=== PATIENT | female | born 1935 | race Caucasian/White ===

== ENCOUNTER 2018-01-19 11:22 | Observation (INO) ==
--- NOTE | 2018-01-19 11:49 | Emergency Department Note ---
Disposition Clinical Impression: Anterior dislocation of left shoulder Disposition: Admitted As Inpatient Condition: Good General Adult HPI - General Chief complaint: ED Extremity Problem,Nontraumatic Stated complaint: SHOULDER PAIN Time Seen by Provider: 01/19/18 11:25 Source: EMS Limitations: altered mental status Nursing Notes Reviewed: Yes Vital Signs Reviewed: Yes - History of Present Illness HPI Narrative: Left shoulder pain. Nursing staff noticed this morning. No trauma. Patient is nonverbal. Pain Scale: 5 - Related Data Home Medications Medication Instructions Recorded Confirmed Acetaminophen [Tylenol 650mg SUPP] 650 mg RC Q4HR PRN 01/19/18 01/19/18 HYDROcodone/Acet 7.5/325 mg [[place] 1 tab PO DAILY PRN 01/19/18 01/19/18 7.5-325 mg] LORazepam [Lorazepam Intensol] 0.25 ml SL BID PRN 01/19/18 01/19/18 MORPHINE SUL Oral CONC [Roxanol 0.25 mg SL Q4H PRN 01/19/18 01/19/18 Oral Conc] Na Phos,M-B/Na Phos,Di-Ba [Fleet 230 ml RC DAILY PRN 01/19/18 01/19/18 Enema Extra] Allergies Allergy/AdvReac Type Severity Reaction Status Date / Time No Known Allergies Allergy Verified 01/19/18 16:33 Limitations: ROS unobtainable due to patients medical condition (Patient is nonverbal) Past Medical History - Past Medical History Medical history: Reports: arthritis, CHF, dementia, GERD, hypertension Psychiatric history: Reports: depression - Social History Smoking Status: Never smoker Alcohol use: Reports: none Drug use: Reports: none Physical Exam - General Limitations: altered mental status General appearance: alert Course Course Narrative: Nonverbal female patient from the skilled nursing with a concern for left shoulder dislocation. This most of happen sometime overnight. The daughter is at bedside stating that there was no trauma associated. They did have to use a Alyssa lift to try to move around and they are afraid this is what happened. She has no pain on range of motion of her right however she does not allow me to move it throughout the full range of motion. She has good radial pulses bilaterally. On the left if you attempt to abduct her shoulder she winces in pain and says out. I do not appreciate any signs of trauma to her body. - Reevaluation(s) Reevaluation #1: We used ketamine and Versed to help with the reduction. All the shoulder did remove I do not believe this back in place. We will get a postreduction film and contact orthopedics. We did try multiple techniques such as scapular manipulation as well as traction and anterior-posterior movement. We did attempt to manipulate the humeral head with no success. Time: 15:29 Vital Signs Temperature 99.3 F 01/19/18 11:25 Pulse Rate 89 01/19/18 11:25 Respiratory Rate 18 01/19/18 11:25 Blood Pressure 193/71 01/19/18 11:25 O2 Sat by Pulse Oximetry 94 01/19/18 11:25 Temperature 98.9 F 01/19/18 19:48 Pulse Rate 77 01/19/18 19:48 Respiratory Rate 14 01/19/18 19:48 Blood Pressure 169/85 01/19/18 19:48 O2 Sat by Pulse Oximetry 95 01/19/18 19:48 Oxygen Delivery Oxygen Delivery [1525] Nasal Cannula Oxygen Delivery [1520] Nasal Cannula Oxygen Delivery [1515] Nasal Cannula Oxygen Delivery [1510] Nasal Cannula Oxygen Delivery [1505] Room Air Oxygen Delivery Nasal Cannula
[2018-01-19] MEDS ORDERED: *HR* Ketamine 500 MG/5 ML MDV IVP ONE (13:17)
[2018-01-19] MEDS ORDERED: *HR* Midazolam HCl 2 MG/2 ML VIAL IVP ONE ×2 (13:18→15:50)
[2018-01-19] MEDS ORDERED: 0.9 % Sodium Chloride 1,000 ML ONE (14:56)
--- NOTE | 2018-01-19 15:37 | Emergency Department Note ---
Disposition Clinical Impression: Anterior dislocation of left shoulder Qualifiers: Encounter type: initial encounter Qualified Code(s): S43.015A - Anterior dislocation of left humerus, initial encounter Disposition: Admitted As Inpatient Condition: Good Extremity Problem HPI - General Chief complaint: ED Extremity Problem,Nontraumatic Stated complaint: SHOULDER PAIN Time Seen by Provider: 01/19/18 11:25 Source: EMS Limitations: altered mental status Nursing Notes Reviewed: Yes Vital Signs Reviewed: Yes - History of Present Illness HPI Narrative: 82-year-old female with a history of advanced dementia presents due to left shoulder pain. Patient is nonverbal but nursing staff noted that she was not using or moving her left arm. According to staff she was normal yesterday. X- rays were done revealing anterior dislocation of the left glenohumeral joint. Pt Subjective Complaint: extremity pain Onset (ago): unknown Consistency: constant Injury Location: left Pain Scale: 5 Improves with: nothing Worsens with: range of motion - Related Data Home Medications Medication Instructions Recorded Confirmed Acetaminophen [Tylenol 650mg SUPP] 650 mg RC Q4HR PRN 01/19/18 01/19/18 HYDROcodone/Acet 7.5/325 mg [[place] 1 tab PO DAILY PRN 01/19/18 01/19/18 7.5-325 mg] LORazepam [Lorazepam Intensol] 0.25 ml SL BID PRN 01/19/18 01/19/18 MORPHINE SUL Oral CONC [Roxanol 0.25 mg SL Q4H PRN 01/19/18 01/19/18 Oral Conc] Na Phos,M-B/Na Phos,Di-Ba [Fleet 230 ml RC DAILY PRN 01/19/18 01/19/18 Enema Extra] Allergies Allergy/AdvReac Type Severity Reaction Status Date / Time No Known Allergies Allergy Verified 01/19/18 16:33 Limitations: ROS unobtainable due to patients medical condition Past Medical History - Past Medical History Medical history: Reports: arthritis, CHF, dementia, GERD, hypertension Psychiatric history: Reports: depression - Social History Smoking Status: Never smoker Alcohol use: Reports: none Drug use: Reports: none Physical Exam Pleasantly confused elderly female in no apparent physiologic distress. She does follow some commands but is unable to follow in detail. Oropharynx is clear mucous membranes are dry. Mallampati airway score of 2-3. Trachea is midline. Chest is clear to auscultation bilaterally. Both shoulders are tender to palpation. There is clearly an empty glenoid on the left shoulder. There appears to be some deformity of the right shoulder as well and she seems to wince with palpation. Lower extremities unremarkable. - General Limitations: altered mental status General appearance: alert - Head Head exam: atraumatic - Eye Eye exam: Present: normal appearance - ENT ENT exam: normal exam, normal oropharynx, other - Neck Neck exam: Present: normal inspection Course - Reevaluation(s) Reevaluation #1: Patient has a anterior-inferior dislocation of the left proximal humerus. It is uncertain as to how long this has been dislocated. Patient is nonverbal and unable to contribute anything verbally. She had eaten breakfast between 9:00 this morning so without 6 hours to pass before any sedation. She is Mallampati airway class II with congestive heart failure. ASA class III. She was given initially 1 mg of IV Versed and we titrated ketamine up to 70 mg while under continuous cardiac monitoring, oximetry and capnography. She maintain entitle CO2 of 20-22 with OXYGENATION WHILE ON 3 L OF NASAL CANNULA OXYGEN. She appeared to be adequately sedated with transient drop in oxygenation, but did exhibit some discomfort and moaning with traction on the shoulder. Multiple attempts to reduce shoulder under linear traction were unsuccessful with this degree of sedation. Follow-up x-ray reveals there to be no significant change in positioning of the glenohumeral joint. Given her advanced age, comorbidities and the difficult nature to reduce the shoulder we decided to terminate further efforts in the ED and will contact orthopedics. She may need to have this done under general anesthesia in a more controlled setting. Time: 15:37 Reevaluation #2: Brief discussion with Dr. Victor; call interrupted and he said he will call back Time: 16:16 Vital Signs Temperature 99.3 F 01/19/18 11:25 Pulse Rate 89 01/19/18 11:25 Respiratory Rate 18 01/19/18 11:25 Blood Pressure 193/71 01/19/18 11:25 O2 Sat by Pulse Oximetry 94 01/19/18 11:25 Temperature 98.9 F 01/19/18 19:48 Pulse Rate 77 01/19/18 19:48 Respiratory Rate 14 01/19/18 19:48 Blood Pressure 169/85 01/19/18 19:48 O2 Sat by Pulse Oximetry 95 01/19/18 19:48 Oxygen Delivery Oxygen Delivery [1525] Nasal Cannula Oxygen Delivery [1520] Nasal Cannula Oxygen Delivery [1515] Nasal Cannula Oxygen Delivery [1510] Nasal Cannula Oxygen Delivery [1505] Room Air Oxygen Delivery Nasal Cannula Attestation Statement - Attestation Attestation: I examined this patient and my medical decision-making was reviewed with the Resident Physician. I agree with the documented findings, disposition and treatment plan as described except to the extent set forth below.
--- NOTE | 2018-01-19 16:54 | Anesthesia Evaluation PreOp ---
Date of Encounter: 01/19/18 Time of Encounter: 16:51 - Past History Planned Operation: Closed vs. 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 Anxiety/Depression) Other Medical History: Other (Psoriatic Arthritis) Anesthesia History: Past Anesthesia ( x 2, Hyster, Hemorrhoidectomy, B- TKR) Alcohol Use: none Drug use: none Medications and Allergies Acetaminophen [Tylenol 650mg SUPP] 650 mg RC Q4HR PRN 01/19/18 [History] HYDROcodone/Acet 7.5/325 mg [[place] 7.5-325 mg] 1 tab PO DAILY PRN 01/19/18 [ History] LORazepam [Lorazepam Intensol] 0.25 ml SL BID PRN 01/19/18 [History] MORPHINE SUL Oral CONC [Roxanol Oral Conc] 0.25 mg SL Q4H PRN 01/19/18 [History] Na Phos,M-B/Na Phos,Di-Ba [Fleet Enema Extra] 230 ml RC DAILY PRN 01/19/18 [ History] 3 Allergy/AdvReac Type Severity Reaction Status Date / Time No Known Allergies Allergy Verified 01/19/18 16:33 - Meds/Allergy Pre-op Review Medications Reviewed: Yes Allergies Reviewed: Yes Beta Blockers on Current Med List: No Anesthesia Results - Labs Impressions Shoulder X-Ray 01/19/18 15:28 IMPRESSION: Unchanged impacted anterior-inferior glenohumeral dislocation with suspected Hill-Sachs fracture. D/ / Tam Dodd / Tam Dodd Interpreting Provider: Tam Dodd Anesthesia Exam Vital Signs Temp Pulse Pulse Pulse Pulse Pulse Pulse 01/19/18 16:15 79 01/19/18 15:45 78 01/19/18 15:40 76 01/19/18 15:35 76 01/19/18 15:01 82 82 85 84 78 01/19/18 11:25 99.3 F 89 Resp Resp Resp Resp Resp Resp BP 01/19/18 16:15 17 198/90 01/19/18 15:45 18 194/100 01/19/18 15:40 19 194/93 01/19/18 15:35 18 194/92 01/19/18 15:01 20 17 15 24 19 01/19/18 11:25 18 193/71 BP BP BP BP Pulse Ox 01/19/18 16:15 99 01/19/18 15:45 99 01/19/18 15:40 99 01/19/18 15:35 99 01/19/18 15:01 195/89 200/103 197/97 192/89 01/19/18 11:25 94 Intake and Output 01/19/18 01/19/18 01/19/18 07:59 15:59 23:59 Other: Weight 69.853 kg Patient Weight 01/19/18 23:59 Weight 69.853 kg Height: 5'3" Weight: 154# BMI = 27.3 NPO (# of Hours): MNoc Pain Scale Used: Unable to assess - HEENT Pupil (Motor): Pupils equal, EOMI Mallampati: II Teeth: Edentulous Oral Opening: Greater than 3 - WIRE PREPARATION WORKER LOC: Uncooperative WIRE PREPARATION WORKER Motor: Normal RUE, Normal RLE, Normal LLE, Normal Face, Deficit LUE WIRE PREPARATION WORKER Sensory: Normal: RUE, RLE, LLE, Face, Deficit: LUE - Cardiac Rhythm: Regular Murmur: None - Pulmonary Breath Sounds: bilateral Clear Respiratory Effort: Symmetrical Anesthesia Assess/Plan ASA Score: 3 (CHF, HTN, Dementia, Anxiety/Depression) Modified [place] Scale for Level of Consciousness: Cooperative, oriented, and tranquil Anesthetic Plan: General Monitoring Plan: Standard Monitors Recovery Plan: PACU Anes Supervising Prov Stmt: Pt seen/evaluated but not communicating with staff/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 R&B Discussed, questions answered and consent obtained. Afia Day MD
--- NOTE | 2018-01-19 17:15 | Orthopedic Consult Note ---
Date of Encounter: 01/19/18 Time of Encounter: 17:12 Assessment and Plan (1) Anterior dislocation of left shoulder Current Visit: Yes Status: Acute The diagnosis and treatment plan were discussed with the patient's family. She has an anterior shoulder dislocation causing her pain. The family does believe it has been out since last night but there was no witnessed injury. The physicians in the ED were unable to reduce the shoulder due to O2 desaturation with conscious sedation. Due to obvious pain it is causing and failure of attempted closed reduction in the ED, we will perform closed vs open reduction of the left shoulder in the operating room. The risks and benefits of the procedure were fully explained in detail, including but not limited to the risk of infection, neurovascular injury, continued pain or stiffness, fracture, redislocation, failure of surgery, reinjury, or need for additional surgery, DVT , PE, general risks of anesthesia and loss of limb or life. No guarantees were given or implied and all questions were answered. The patient's daughter, who is POA, understands all the risks and does wish to proceed with written consent. Qualifiers: Encounter type: initial encounter Qualified Code(s): S43.015A - Anterior dislocation of left humerus, initial encounter History of Present Illness HPI: Ms. Heredia is a 82 year old female with PMHx arthritis, CHF, dementia, GERD, hypertension who presents with a left shoulder dislocation. She is nonverbal and her history comes from her daughter. She resides at a senior living. Per the daughter and senior living staff she was using her left arm normally yesterday and then today they noticed an obvious deformity of the shoulder and she has not moved it. She has pain when the staff attempted to passively range the shoulder. There was no witnessed trauma but she did have to be moved via a jihan lift and then are concerned that is when the injury happened. Past Med Surg Social Fam HX - Past Medical History Medical history: arthritis, CHF, dementia, GERD, hypertension Additional medical history: UTIs. anemia. diverticulosis Psychiatric history: depression - Social History Smoking Status: Never smoker Alcohol use: none Drug use: none Medications and Allergies Acetaminophen [Tylenol 650mg SUPP] 650 mg RC Q4HR PRN 01/19/18 [History] HYDROcodone/Acet 7.5/325 mg [[place] 7.5-325 mg] 1 tab PO DAILY PRN 01/19/18 [ History] LORazepam [Lorazepam Intensol] 0.25 ml SL BID PRN 01/19/18 [History] MORPHINE SUL Oral CONC [Roxanol Oral Conc] 0.25 mg SL Q4H PRN 01/19/18 [History] Na Phos,M-B/Na Phos,Di-Ba [Fleet Enema Extra] 230 ml RC DAILY PRN 01/19/18 [ History] 3 Allergy/AdvReac Type Severity Reaction Status Date / Time No Known Allergies Allergy Verified 01/19/18 16:33 ROS unobtainable: due to mental status All Systems Reviewed: The remainder of the systems were reviewed and are negative Physical Exam - Constitutional Vitals: Temp Pulse Resp BP Pulse Ox 99.3 F 79 17 198/90 99 01/19/18 11:25 01/19/18 16:15 01/19/18 16:15 01/19/18 16:15 01/19/18 16:15 Exam: Consult Exam: Constitutional -Vitals reviewed -The patient is well developed and well nourished. Psychiatric -The patient is alert and oriented x 0. Respiratory: -Respiratory effort normal Abdomen: -Soft abdomen -Non tender -Non distended: Left upper extremity: -Obvious glenoid defect. The overlying skin is intact. -Pain with attempted passive motion of the shoulder -No significant pain with passive motion of the elbow, wrist, and fingers within the limits of the bed. -Actively moving hand and wrist -Radial pulse is present; Fingers have good capillary refill. Right upper extremity: -No deformities. The overlying skin is intact. No obvious signs of acute trauma. -No significant pain with passive motion of the shoulder, elbow, wrist, and fingers within the limits of the bed. -Actively moving extremity without apparent difficulty -Radial pulse is present; Fingers have good capillary refill. Left lower extremity: -No deformities. The overlying skin is intact. No obvious signs of acute trauma. -No tenderness to palpation throughout. -No pain with passive motion of the hip, knee, ankle, and toes within the limits of the bed. -Spontaneously moving extremity -Toes have good capillary refill. Right lower extremity: -No deformities. The overlying skin is intact. No obvious signs of acute trauma. -No tenderness to palpation throughout. -No pain with passive motion of the hip, knee, ankle, and toes within the limits of the bed. -Spontaneously moving extremity -Toes have good capillary refill. Results - Labs Labs: All other labs normal. - Diagnostic results Shoulder x-ray: image reviewed (XR L shoulder shows anterior inferior glenohumeral dislocation without obvious fracture) Consult Discharge Plan - Plan
[2018-01-19] MEDS ORDERED: Acetaminophen IV 1,000 MG/100 ML INFUS..BTL ONE (17:38)
[2018-01-19] MEDS ORDERED: *HR* Propofol 200 MG/20 ML VIAL IVP ONE (18:53)
[2018-01-19] MEDS ORDERED: Lidocaine -MPF 2% 2 ML VIAL ONE ×2 (18:53)
[2018-01-19] MEDS ORDERED: *HR* Etomidate 40 MG/20 ML VIAL IVP ONE (18:53)
[2018-01-19] MEDS ORDERED: *HR* FentaNYL (PF) 100 MCG/2 ML VIAL ONE (18:53)
--- NOTE | 2018-01-19 19:01 | Orthopedic Operative Note ---
Date of procedure: 01/19/18 Procedure: Procedure: Left shoulder glenohumeral joint closed reduction Preoperative diagnosis: Left shoulder glenohumeral joint dislocation Postoperative diagnosis: Same Surgeon: Duke Rose MD Leaf Conditioner Helper: None Anesthesia: General EBL: 0 Complications: None INDICATIONS: This is a 82-year-old female who has dementia and resides in a nursing facility who was brought to the emergency department with a left shoulder deformity. Per the family she had normal function of the shoulder prior to today. There was no known or obvious trauma but they believe she had injured it when being transferred via Alyssa lift last night. X-rays performed showed anterior inferior glenohumeral joint dislocation. Attempts were made for closed reduction in the ED but they were unsuccessful. After discussion of treatment options with the family, the decision was made to perform a left shoulder closed vs open reduction in the operating room. The risks and benefits of the procedure were fully explained. Those risks include but are not limited to, infection, neurovascular injury, continued pain, arthritis, stiffness, further injury, need for further surgery, DVT, PE, loss of limb, and loss of life. The patient's POA understood all of these risks and wished to proceed. Informed consent was obtained. OPERATIVE REPORT: The patient was identified in the holding area. The left upper extremity was marked, the patient was taken to the operating room and placed in the supine position. All bony prominences were well padded. The anesthesiologist performed successful general anesthetic for the remainder of the case. A surgical time out protocol was then performed. Using traction- countertraction, the shoulder was reduced without issue. Fluoroscopy confirmed the reduction. The patient was placed in a sling and taken to PACU in stable condition. There were no complications. Was there an leasing assistant present: No Estimated blood loss (cc): 0
[2018-01-19] MEDS ORDERED: MORPHINE SUL Oral CONC 10 MG/0.5 ML ORAL.SYG SL PRN (19:04)
[2018-01-19] MEDS ORDERED: *HR* Labetalol 100 MG/20 ML MDV IVP PRN (19:04)
[2018-01-19] MEDS ORDERED: Ondansetron 4 MG/2 ML VIAL IVP ONE (19:04)
--- NOTE | 2018-01-19 19:38 | Physician Discharge Referral ---
- Diagnosis (1) Anterior dislocation of left shoulder Priority: Primary Status: Acute - Transfer Medications Home Medications: Acetaminophen [Tylenol 650mg SUPP] 650 mg RC Q4HR PRN 01/19/18 [History] HYDROcodone/Acet 7.5/325 mg [[place] 7.5-325 mg] 1 tab PO DAILY PRN 01/19/18 [ History] LORazepam [Lorazepam Intensol] 0.25 ml SL BID PRN 01/19/18 [History] MORPHINE SUL Oral CONC [Roxanol Oral Conc] 0.25 mg SL Q4H PRN 01/19/18 [History] Na Phos,M-B/Na Phos,Di-Ba [Fleet Enema Extra] 230 ml RC DAILY PRN 01/19/18 [ History] Allergies/Adverse Reactions: 3 Allergy/AdvReac Type Severity Reaction Status Date / Time No Known Allergies Allergy Verified 01/19/18 16:33 - Respiratory Orders Smoking Cessation: Smoking cessation has been advised. For more information, call the [place] Tobacco Quit Line at 6-681-OHUA-NOW. - Rehabiliation Orders Rehab Potential: Fair Other: Continue sling at all times except for bathing to left upper extremity for next 3 weeks. No manipulation of shoulder or around shoulder with transfers. Shoulder should be supported at all times with transfers. - Diet Orders Regular CERTIFICATION: I certify that the transfer of the above named patient to an Extended Care Facility is necessary for the continuing treatment of the diagnosis listed. The above information is true and accurate reflection of patient's current condition. Confidential - Redisclosure prohibited without a patient's written consent.
--- NOTE | 2018-01-19 19:48 | Anesthesia Evaluation Post Op ---
Date of Encounter: 01/19/18 Time of Encounter: 19:24 Notes: Patient's vital signs have been reviewed. Patient is stable postoperatively and has adequately recovered from anesthesia. Patient is determined to have stable airway patency and respiratory function including respiratory rate and oxygen saturation. Patient has a stable heart rate, blood pressure and adequate hydration. Patients mental status is acceptable. Patients temperature is appropriate. Pain and nausea are adequately controlled. - Discharge PostOp Status: Transfer Patient to floor
[2018-01-19 19:49] VITALS: BP 169/85
== END 2018-01-19 20:50 ==
LOC: 3NENU 11:22 → EMEROO 11:22 → 3NENU 18:39
PROVIDERS: ADMIT Orthopaedic Surgery Sports Medicine; ATTEND Orthopaedic Surgery Sports Medicine